=== PATIENT | female | born 1980 | race Caucasian/White ===

== ENCOUNTER 2019-12-22 12:12 | Emergency (ER) | payer OTHER ==
[~2019-12-22] VITALS: Ht 162.6 cm; Wt 68.0 kg
[2019-12-22] MEDS ORDERED: CITALOPRAM HBR20 MG PO (12:24)
== END 2019-12-22 13:23 | disposition home or self-care (01) ==
LOC: ED 12:12
DX: S01.01XA Laceration without foreign body of scalp, initial encounter (principal); Z87.891 Personal history of nicotine dependence; Z88.2 Allergy status to sulfonamides; Z79.899 Other long term (current) drug therapy; W18.30XA Fall on same level, unspecified, initial encounter
CPT/HCPCS: 12002; 99283-25

== ENCOUNTER 2021-09-02 20:04 | Emergency (ER) | payer OTHER ==
[~2021-09-02] VITALS: Ht 162.6 cm; Wt 80.3 kg
[~2021-09-02 20:04] MED LIST: CITALOPRAM HBR20 MG PO
[2021-09-02] MEDS ORDERED: SUMATRIPTAN SU100 MG PO (21:04)
[2021-09-02] MEDS ORDERED: AMITRIPTYLINE H25 MG PO (21:04)
[2021-09-02] MEDS ORDERED: HYDROCODON-ACE1 EA10 PO (22:36)
[2021-09-02] MEDS ORDERED: CRUTCH1 EACH MISC (22:37)
== END 2021-09-02 23:17 | disposition home or self-care (01) ==
LOC: ED 20:04
DX: S93.401A Sprain of unspecified ligament of right ankle, initial encounter (principal); X50.1XXA Overexertion from prolonged static or awkward postures, initial encounter; Z87.891 Personal history of nicotine dependence; Z88.2 Allergy status to sulfonamides; Z79.899 Other long term (current) drug therapy
CPT/HCPCS: 73610; 99283-25; A9270